=== PATIENT | male | born 1970 | race African-American/Black ===

== ENCOUNTER 2023-10-23 14:28 | Inpatient (IN) | payer OTHER ==
[~2023-10-23] VITALS: Ht 185.4 cm; Wt 116.4 kg
[2023-10-23 15:37] LABS: BASOPHILS % (AUTO) 1.3 % (0.0-2.0); EOSINOPHILS % (AUTO) 0.8 % (1.0-6.0); HEMOGLOBIN 14.8 g/dL (13.5-17.5); LYMPHOCYTES # (AUTO) 2.1 K/uL (1.0-4.8); LYMPHOCYTES % (AUTO) 57.9 % (22.0-44.0); MEAN CORPUSCULAR HEMOGLOBIN 29.2 pg (26.0-34.0); MEAN CORPUSCULAR HGB CONC 34.5 G/dL (31.0-37.0); MEAN CORPUSCULAR VOLUME 85 fL (80-100); MONOCYTES # (AUTO) 0.4 K/uL (0.1-1.0); MONOCYTES % (AUTO) 9.7 % (2.0-9.0); NEUTROPHILS # (AUTO) 1.1 K/uL (1.8-7.7); NEUTROPHILS % (AUTO) 30.3 % (40.0-70.0); PLATELET COUNT (AUTO) 162 K/uL (150-450); RED BLOOD CELL COUNT(AUTO) 5.07 MIL/uL (4.50-5.90); RED CELL DISTRIBUTION WIDTH 13.5 % (11.5-14.5); WHITE BLOOD COUNT (AUTO) 3.7 K/uL (4.5-11.0)
[2023-10-23 15:47] LABS: ANION GAP 7 mmol/L (8-16); CALCIUM, TOTAL 9.3 mg/dL (8.8-10.5); CARBON DIOXIDE 29 mmol/L (22-29); CHLORIDE 106 mmol/L (98-107); CREATININE 0.79 mg/dL (0.60-1.30); GLOMERULAR FILTR. RATE CALC > 60 mL/min (>60); GLUCOSE,RANDOM 122 mg/dL (70-110); POTASSIUM 4.2 mmol/L (3.5-5.1); SODIUM SERUM 142 mmol/L (136-145); UREA NITROGEN, BLOOD 12 mg/dL (7-18)
[2023-10-23 15:55] LABS: LACTIC ACID 1.1 mmol/L (0.4-2.0)
[2023-10-23 15:58] LABS: TROPONIN I-HIGH SENSITIVITY 5 ng/L (<76)
[2023-10-23 16:00] LABS: ALCOHOL, BLOOD (SERUM) < 3 mg/dL (0-10)
[2023-10-23 16:01] LABS: ALANINE AMINOTRANSFERASE 24 U/L (12-78); ALBUMIN 3.9 g/dL (3.4-5.0); ALKALINE PHOSPHATASE 88 U/L (46-116); ASPARTATE AMINOTRANSFERASE 19 U/L (15-37); BILIRUBIN,TOTAL 0.4 mg/dL (0.1-1.0); LIPASE 42 U/L (16-77); TOTAL PROTEIN, SERUM 7.7 g/dL (6.4-8.2)
[2023-10-23] MEDS ORDERED: SODIUM CHLORIDE 0.9% 1,000 ML IV ONE (16:15)
[2023-10-23] MEDS ORDERED: ACETAMINOPHEN 500 MG TABLET PO ONE (17:15)
[2023-10-23 17:45] LABS: COVID AG,FIA SOURCE NASAL SWAB
[2023-10-23] MEDS ORDERED: ZOLPIDEM TARTRATE 10 MG TABLET PO PRN (17:45)
[2023-10-23] MEDS ORDERED: ONDANSETRON HCL 4 MG/2 ML VIAL IVP PRN (17:45)
[2023-10-23] MEDS ORDERED: ACETAMINOPHEN 325 MG TABLET PO PRN (17:45)
[2023-10-23] MEDS ORDERED: IPRATROPIUM BROMIDE 0.5 MG/2.5 ML NEB SOLUTION NEB PRN (17:45)
[2023-10-23] MEDS ORDERED: MAGNESIUM HYDROXIDE SUSPENSION 30 ML UDCUP PO PRN (17:45)
[2023-10-23] MEDS ORDERED: DICL35CA3 PO (17:58)
[2023-10-23] MEDS ORDERED: METO-327 PO (17:58)
[2023-10-23] MEDS ORDERED: APIX2.5T PO (17:58)
[2023-10-23] MEDS ORDERED: LOSA-382 PO (17:58)
[2023-10-23] MEDS ORDERED: METF-283 PO (17:58)
[2023-10-23] MEDS ORDERED: XALA2.5OS OU (17:58)
[2023-10-23] MEDS ORDERED: BUPR-344 PO (17:58)
[2023-10-23] MEDS ORDERED: GABA-1181 PO (17:58)
[2023-10-23] MEDS ORDERED: HYDROX5L PO (17:58)
[2023-10-23] MEDS ORDERED: AMLO10TA55 PO (17:58)
[2023-10-23] MEDS ORDERED: BENZ1TAB84 PO (17:58)
[2023-10-23] MEDS ORDERED: ATOR40TA71 PO (17:58)
[2023-10-23] MEDS ORDERED: DULA1.5P SQ (17:58)
[2023-10-23] MEDS ORDERED: CALC-613 PO (17:58)
[2023-10-23] MEDS ORDERED: PANT-31 PO (17:58)
[2023-10-23 18:04] LABS: SARS-COV2 (COVID) ANTIGEN,FIA Negative (Negative)
[2023-10-23] MEDS ORDERED: DEXTROSE 50%-WATER 25 GM/50 ML SYRINGE IVP PRN (18:15)
[2023-10-23] MEDS ORDERED: DICLOFENAC SODIUM 50 MG DR TABLET PO SCH (18:15)
[2023-10-23 18:30] LABS: TROPONIN I-HIGH SENSITIVITY 4 ng/L (<76)
[2023-10-23 20:35] VITALS: BP 169/108; PULSE 75; RESP 20; TEMP 97.9
[2023-10-23] MEDS ORDERED: METOPROLOL TARTRATE 50 MG TABLET PO ONE (21:00)
[2023-10-23] MEDS ORDERED: HYDROXYZINE HCL 10 MG/5 ML PO SCH (21:00)
[2023-10-23] MEDS ORDERED: LATANOPROST 0.005% 2.5 ML OPHTHALMIC SOLUTION OU SCH (21:00)
[2023-10-23] MEDS ORDERED: ATORVASTATIN CALCIUM 40 MG TABLET PO SCH (21:00)
[2023-10-23] MEDS: CALCIUM CARBONATE 500 MG CHEWABLE TABLET PO SCH (21:02)
[2023-10-23] MEDS: METOPROLOL SUCCINATE 50 MG ER TABLET PO SCH (21:02)
[2023-10-23] MEDS: GABAPENTIN 300 MG CAPSULE PO SCH (21:02)
[2023-10-23] MEDS: DOCUSATE SODIUM 100 MG CAPSULE PO SCH (21:03)
[2023-10-23] MEDS: APIXABAN 2.5 MG TABLET PO SCH (21:03)
[2023-10-23] MEDS: INSULIN LISPRO 100 UNITS/ML SQ PRN (23:04)
[2023-10-24 00:16] LABS: TROPONIN I-HIGH SENSITIVITY 4 ng/L (<76)
[2023-10-24 00:21] VITALS: BP 129/66; PULSE 79; RESP 20; TEMP 97.5
[2023-10-24 05:26] VITALS: BP 146/86; PULSE 80; RESP 20; TEMP 97.6
[2023-10-24] MEDS: INSULIN LISPRO 100 UNITS/ML SQ PRN (06:28)
[2023-10-24 06:41] LABS: GLUCOMETER DEV NAME(LOC) 5N.1C; GLUCOSE,POINT OF CARE 164 MG/DL (70-110)
[2023-10-24 06:51] LABS: TROPONIN I-HIGH SENSITIVITY 7 ng/L (<76)
[2023-10-24 07:05] LABS: CHOL/HDL RATIO 5.8 (4.2-7.3)
[2023-10-24 07:25] VITALS: BP 137/90; PULSE 81; RESP 20; TEMP 97.8
[2023-10-24] MEDS: METOPROLOL SUCCINATE 50 MG ER TABLET PO SCH (08:07)
[2023-10-24] MEDS: DOCUSATE SODIUM 100 MG CAPSULE PO SCH (08:08)
[2023-10-24] MEDS: GABAPENTIN 300 MG CAPSULE PO SCH (08:08)
[2023-10-24] MEDS: APIXABAN 2.5 MG TABLET PO SCH (08:08)
[2023-10-24] MEDS: CALCIUM CARBONATE 500 MG CHEWABLE TABLET PO SCH (08:16)
[2023-10-24] MEDS ORDERED: BENZTROPINE MESYLATE 1 MG TABLET PO SCH (09:00)
[2023-10-24] MEDS ORDERED: HydrOXYzine HCL 50 MG TABLET PO SCH (09:00)
[2023-10-24] MEDS ORDERED: BuPROPion HCL 75 MG TABLET PO SCH (09:00)
[2023-10-24] MEDS ORDERED: LOSARTAN POTASSIUM 50 MG TABLET PO SCH (09:00)
[2023-10-24] MEDS ORDERED: ASPIRIN 81 MG CHEWABLE TABLET PO SCH (09:00)
[2023-10-24] MEDS ORDERED: PANTOPRAZOLE SODIUM 40 MG/VIAL IVP SCH (09:00)
[2023-10-24] MEDS ORDERED: AmLODIPine BESYLATE 10 MG TABLET PO SCH (09:00)
[2023-10-24] MEDS ORDERED: ATOR40TA28 PO (12:16)
[2023-10-24] MEDS ORDERED: ISOS60TA77 PO (12:25)
[2023-10-25 06:31] LABS: GLUCOMETER DEV NAME(LOC) 5S.2C; GLUCOSE,POINT OF CARE 142 MG/DL (70-110)
[2023-10-25 06:31] LABS: GLUCOMETER DEV NAME(LOC) 5S.2C; GLUCOSE,POINT OF CARE 133 MG/DL (70-110)
[2023-10-30] MEDS ORDERED: MISC MED-CONVERTED FROM AMBULATORY (Dulaglutide (Trulicity) 1.5 MG) SQ SCH (09:00)
== END 2023-10-24 13:30 | DRG 313 ==
LOC: EMS 14:28 → 5S 19:12
PROVIDERS: ADMIT Hospitalist; ATTEND Hospitalist
DX: R07.89 Other chest pain (principal); I48.92 Unspecified atrial flutter; I10 Essential (primary) hypertension; E11.9 Type 2 diabetes mellitus without complications; E78.5 Hyperlipidemia, unspecified; F20.9 Schizophrenia, unspecified; F31.9 Bipolar disorder, unspecified; I25.10 Atherosclerotic heart disease of native coronary artery without angina pectoris; Z20.822 Contact with and (suspected) exposure to COVID-19; Z86.73 Personal history of transient ischemic attack (TIA), and cerebral infarction without residual deficits; Z88.0 Allergy status to penicillin; Z88.8 Allergy status to other drugs, medicaments and biological substances; Z79.899 Other long term (current) drug therapy; Z79.01 Long term (current) use of anticoagulants; Z79.84 Long term (current) use of oral hypoglycemic drugs
CPT/HCPCS: 71045; 80053; 80061; 82962; 83605; 83690; 84484; 85025; 93005; 93306; 99285; C9113; G0480; 36415-L1; 36415-TC